=== PATIENT | male | born 1965 | race African-American/Black ===

== ENCOUNTER 2018-05-30 12:16 | Emergency (ER) | payer BC ==
[2018-05-30 12:30] VITALS: BP 134/89
[2018-05-30] MEDS ORDERED: IBUPROFEN 800 MG TABLET PO ONE (12:40)
--- NOTE | 2018-05-30 12:43 | ER Document Report ---
HPI - HPI Patient complains to provider of: Dental pain Time Seen by Provider: 05/30/18 12:32 Onset/Duration: Worse Quality of pain: Achy Pain Level: 5 Context: Patient presents complaining of dental pain from a decayed tooth for several weeks that worsened today. Patient denies any fever or facial swelling. Patient has been on amoxicillin and states he only has a day left. Patient does have an appointment with his dentist in 9 days. Associated Symptoms: denies: Fever Exacerbated by: Denies Relieved by: Denies Similar symptoms previously: Yes Recently seen / treated by doctor: Yes - ROS ROS below otherwise negative: Yes Systems Reviewed and Negative: Yes All other systems reviewed and negative - CONSTITUTIONAL Constitutional: DENIES: Fever, Chills - EENT EENT: DENIES: Sore Throat, Ear Pain, Eye problems Notes: Dental pain - MUSCULOSKELETAL Musculoskeletal: DENIES: Extremity pain - DERM Skin Color: Normal Skin Problems: None Past Medical History - General Information source: Patient - Social History Smoking Status: Current Every Day Smoker Chew tobacco use (# tins/day): No Frequency of alcohol use: Occasional Drug Abuse: None Occupation: [email or web address] Family History: Reviewed & Not Pertinent Patient has suicidal ideation: No Patient has homicidal ideation: No - Medical History Medical History: Negative Renal/ Medical History: Denies: Hx Peritoneal Dialysis Past Surgical History: Reports: Hx Orthopedic Surgery Vertical Provider Document - CONSTITUTIONAL Agree With Documented VS: Yes Exam Limitations: No Limitations General Appearance: WD/WN, No Apparent Distress - INFECTION CONTROL TRAVEL OUTSIDE OF THE [place] IN LAST 30 DAYS: No - HEENT HEENT: Atraumatic, Normocephalic Mouth Diagram: 1 - Dental decay, fracture, no abscess - NECK Neck: Normal Inspection, Supple. negative: Lymphadenopathy-Left, Lymphadenopathy-Right - RESPIRATORY Respiratory: Breath Sounds Normal, No Respiratory Distress - CARDIOVASCULAR Cardiovascular: Regular Rate, Regular Rhythm - BACK Back: Normal Inspection - MUSCULOSKELETAL/EXTREMETIES Musculoskeletal/Extremeties: MAEW, FROM - NEURO Level of Consciousness: Awake, Alert, Appropriate Motor/Sensory: No Motor Deficit - DERM Integumentary: Warm, Dry Course - Vital Signs Vital signs: Temp Pulse Resp BP Pulse Ox 98.3 F 82 18 134/89 H 98 05/30/18 12:29 05/30/18 12:29 05/30/18 12:29 05/30/18 12:29 05/30/18 12:29 Discharge - Discharge Clinical Impression: Toothache Condition: Stable Disposition: HOME, SELF-CARE Instructions: Toothache ([facility]), Ultram ([facility]) Additional Instructions: Return immediately for any new or worsening symptoms Followup with your primary care provider, call tomorrow to make a followup appointment Prescriptions: Amoxicillin 500 mg PO TID #12 tablet Naproxen [Naprosyn 250 Nmg Tablet] 1 tab PO BID #14 tablet Tramadol HCl [Ultram 50 mg Tablet] 50 mg PO ASDIR PRN #15 tablet PRN Reason: Forms: Smoking Cessation Education Referrals: [facility] [Provider Group] - Follow up as needed
== END 2018-05-30 12:49 | disposition home or self-care (01) ==
LOC: ER 12:16
DX: K08.9 Disorder of teeth and supporting structures, unspecified (principal); F17.200 Nicotine dependence, unspecified, uncomplicated
CPT/HCPCS: 99282

== ENCOUNTER 2018-07-07 05:31 | Emergency (ER) | payer BC ==
[2018-07-07 05:35] VITALS: BP 144/93
[2018-07-07] MEDS ORDERED: PENICILLIN V POTASSIUM 500 MG TABLET PO ONE (06:06)
[2018-07-07] MEDS ORDERED: IBUPROFEN 800 MG TABLET PO ONE (06:06)
--- NOTE | 2018-07-07 06:12 | ER Document Report ---
HPI - HPI Patient complains to provider of: toothache Time Seen by Provider: 07/07/18 06:02 Pain Level: 5 Context: Patient is a 53-year-old male presents to the emergency department for left lower tooth pain. Patient states he has had pain for the last 2 days but could not bear it which is why he presents to the emergency room today. States he does have an appointment with his dentist next week. Patient denies any fever, facial swelling. Past Medical History - General Information source: Patient - Social History Smoking Status: Unknown if Ever Smoked Family History: Reviewed & Not Pertinent Renal/ Medical History: Denies: Hx Peritoneal Dialysis Past Surgical History: Reports: Hx Orthopedic Surgery Vertical Provider Document - CONSTITUTIONAL Agree With Documented VS: Yes Notes: GENERAL: Alert, interacts well. No acute distress. HEAD: Normocephalic, atraumatic. EYES: Pupils equal, round, and reactive to light. Extraocular movements intact. ENT: Oral mucosa moist, tongue midline. No Kong's angina noted. Patient's teeth are in relatively good repair. Patient does appear to be missing tooth #18 and 19. Tooth #17 is the one in question. There is no fluctuance or induration noted around the gumline. Obvious dental caries noted tooth #17. NECK: Full range of motion. Supple. Trachea midline. No lymphadenopathy appreciated LUNGS: Clear to auscultation bilaterally, no wheezes, rales, or rhonchi. No respiratory distress. HEART: Regular rate and rhythm. No murmur ABDOMEN: Soft, non-tender. Non-distended. Bowel sounds present in all 4 quadrant s. EXTREMITIES: Moves all 4 extremities spontaneously. No edema, normal radial and dorsalis pedis pulses bilaterally. No cyanosis. BACK: no cervical, thoracic, lumbar midline tenderness. No saddle anesthesia, normal distal neurovascular exam. NEUROLOGICAL: Alert and oriented x3. Normal speech. cranial nerves II through XII grossly intact. PSYCH: Normal affect, normal mood. SKIN: Warm, dry, normal turgor. No rashes or lesions noted. - INFECTION CONTROL TRAVEL OUTSIDE OF THE [place] IN LAST 30 DAYS: No Course - Re-evaluation Re-evalutation: 07/07/18 06:10 Patient was treated with oral antibiotics in the emergency department will discharge home with same. Discussed close follow-up with dentist and return precautions. Patient voices understanding is stable for discharge. - Vital Signs Vital signs: Temp Pulse Resp BP Pulse Ox 98.3 F 83 21 H 144/93 H 99 07/07/18 05:33 07/07/18 05:33 07/07/18 05:33 07/07/18 05:33 07/07/18 05:33 Discharge - Discharge Clinical Impression: Toothache, Dental caries Condition: Stable Disposition: HOME, SELF-CARE Instructions: Toothache ([facility]), [facility], Penicillin V K ([facility]) Additional Instructions: As we discussed you have been seen and treated in the emergency department for a toothache. Please take antibiotics as prescribed. Please also take [id number] Tylenol Motrin for generalized pain. Please make sure you follow-up with your dentist and return to the emergency room should you have any other concerning symptoms. Prescriptions: Penicillin V Potassium [Penicillin Vk 500 mg Tablet] 500 mg PO BID #20 tablet Forms: Return to Work
== END 2018-07-07 06:36 | disposition home or self-care (01) ==
LOC: ER 05:31
DX: K02.9 Dental caries, unspecified (principal); K08.89 Other specified disorders of teeth and supporting structures
CPT/HCPCS: 99282